=== PATIENT | female | born 1970 | race Caucasian/White ===

== ENCOUNTER 2018-03-02 06:19 | Emergency (ER) | payer SELFPAY ==
[2018-03-02] MEDS ORDERED: Oxymetazoline HCl 0.05% ( 15 ML ) ONE (06:26)
[2018-03-02] MEDS ORDERED: hydrALAZINE 20 MG/ML VIAL ONE (06:34)
[2018-03-02 06:57] LABS: #Lymphocytes 1.4 thou/uL (1.20-3.40); #Monocytes 0.2 thou/uL (0.11-0.59); #Neutrophils 5.3 thou/uL (1.40-6.50); %Basophils 0.5 % (0.0-1.0); %Eosinophils 0.3 % (0.0-10.0); %Lymphocytes 20.1 % (21.0-51.0); %Monocytes 2.6 % (0.0-10.0); %Neutrophils 76.6 % (42.0-75.0); Hemoglobin 14.9 g/dL (12.0-16.0); Mean Corpuscular HGB CONC 35.2 g/dL (32.0-36.0); Mean Corpuscular Hemoglobin 33.3 pg (27.0-31.0); Mean Corpuscular Volume 94.6 fL (78.0-98.0); Mean Platelet Volume 6.8 fL (7.4-10.4); Platelet Count 229 thou/uL (130-400); RBC Distribution Width 12.5 % (11.5-14.5); Red Blood Cell (RBC) Count 4.48 mill/uL (4.20-5.40); White Blood Cell (WBC) Count 6.9 thou/uL (4.8-10.8)
[2018-03-02 07:04] LABS: INR-International Normal Ratio 1.1; Prothrombin Time 13.8 SEC (12.0-14.7)
[2018-03-02 07:05] LABS: PTT 26.3 SEC (22.9-36.1)
[2018-03-02 07:16] LABS: ALT (SGPT) 74 U/L (8-55); AST (SGOT) 61 U/L (5-34); Albumin 3.9 g/dL (3.5-5.0); Alkaline Phosphatase 112 U/L (40-150); Anion Gap 13 mmol/L (10-20); BUN (Urea Nitrogen) 9 mg/dL (7.0-18.7); Bilirubin, Total 0.6 mg/dL (0.2-1.2); Calc. Creatinine Clearance 0 mL/min (70-130); Calcium 9.4 mg/dL (7.8-10.44); Carbon Dioxide 26 mmol/L (22-29); Chloride 100 mmol/L (98-107); Estimated GFR-MDRD 72; Globulin 3.1 g/dL (2.4-3.5); Glucose 152 mg/dL (70-105); Sodium 136 mmol/L (136-145)
[2018-03-02 07:20] LABS: Potassium 2.8 mmol/L (3.5-5.1)
[2018-03-02] MEDS ORDERED: Lidocaine Viscous Sol 2% 15 ml UD Cup ONE (08:27)
== END 2018-03-02 09:15 | disposition home or self-care (01) ==
LOC: ERS 06:19 → EDBD 06:19 → ERS 09:15
DX: R04.0 Epistaxis (principal); I10 Essential (primary) hypertension; F17.210 Nicotine dependence, cigarettes, uncomplicated; Z71.6 Tobacco abuse counseling
CPT/HCPCS: 36415; 80053; 85025; 85610; 85730; 96374; 99406; J0360

== ENCOUNTER 2019-12-06 19:33 | Observation (INO) | payer SELFPAY ==
[2019-12-06] MEDS ORDERED: Nitroglycerin 2% Ointment 1 INCH/1 GM Packet ONE (19:49)
[2019-12-06 20:07] LABS: #Basophils 0.1 thou/uL (0.0-0.2); #Lymphocytes 1.2 thou/uL (1.20-3.40); #Monocytes 0.3 thou/uL (0.11-0.59); #Neutrophils 3.2 thou/uL (1.40-6.50); %Basophils 1.6 % (0.0-1.0); %Eosinophils 0.5 % (0.0-10.0); %Monocytes 7.1 % (0.0-10.0); %Neutrophils 66.8 % (42.0-75.0); Hemoglobin 12.5 g/dL (12.0-16.0); Mean Corpuscular HGB CONC 35.1 g/dL (32.0-36.0); Mean Corpuscular Hemoglobin 34.3 pg (27.0-31.0); Mean Corpuscular Volume 97.7 fL (78.0-98.0); Mean Platelet Volume 8.9 fL (7.4-10.4); Platelet Count 81 thou/uL (130-400); RBC Distribution Width 17.1 % (11.5-14.5); Red Blood Cell (RBC) Count 3.64 mill/uL (4.20-5.40); White Blood Cell (WBC) Count 4.8 thou/uL (4.8-10.8)
[2019-12-06 20:17] LABS: Anisocytosis SLIGHT = 6-15 cells (100X) (0-5/hpf); MDiff Complete? YES; Platelet Morphology Comment Appears Decreased; Polychromasia SLIGHT = 2-3 cells (100X) (0-2/hpf)
--- NOTE | 2019-12-06 20:20 | RAD ---
CHEST ONE VIEW: 12/06/19 HISTORY: Pain. Left arm numbness and weakness. Hypertension. FINDINGS: Normal cardiac silhouette. The lungs and pleural spaces are clear. No pneumothorax or acute osseous abnormalities. IMPRESSION: No acute cardiopulmonary process. POS: PPP
[2019-12-06] MEDS ORDERED: hydrALAZINE 20 MG/ML VIAL ONE (20:25)
[2019-12-06 20:41] LABS: Albumin 3.1 g/dL (3.5-5.0)
[2019-12-06 20:42] LABS: Chloride 91 mmol/L (98-107); Sodium 132 mmol/L (136-145)
[2019-12-06 20:43] LABS: Calcium 8.1 mg/dL (7.8-10.44); Glucose 124 mg/dL (70-105)
[2019-12-06 20:44] LABS: Globulin 4.2 g/dL (2.4-3.5); Protein, Total 7.3 g/dL (6.0-8.3)
[2019-12-06 20:45] LABS: Anion Gap 23 mmol/L (10-20); Bilirubin, Total 2.2 mg/dL (0.2-1.2); Carbon Dioxide 21 mmol/L (22-29)
[2019-12-06 20:46] LABS: Alkaline Phosphatase 372 U/L (40-110)
[2019-12-06 20:47] LABS: BUN (Urea Nitrogen) Less than 4 mg/dL (7.0-18.7); Calc. Creatinine Clearance 0 mL/min (70-130); Estimated GFR-MDRD 76
[2019-12-06 20:48] LABS: AST (SGOT) 221 U/L (5-34)
[2019-12-06 20:49] LABS: ALT (SGPT) 68 U/L (8-55)
[2019-12-06 20:51] LABS: Potassium 2.5 mmol/L (3.5-5.1)
[2019-12-06] MEDS ORDERED: Potassium Chloride 20 MEQ TAB ONE (20:59)
--- NOTE | 2019-12-06 21:06 | PDOC.FPRHP ---
- Allergies/Adverse Reactions Allergies Allergy/AdvReac Type Severity Reaction Status Date / Time No Known Drug Allergies Allergy Verified 12/06/19 22:59 - Home Medications Medication Instructions Recorded Confirmed Type No Known 12/06/19 12/06/19 History - History PMHx: PSHx: FHx: Social: Tobacco abuse, etoh abuse - Vital signs BP: [160/135] HR: [109] RR: [18] Tmax: [98.6] Pox: [100]% on [RA] Wt: [70.31] FMR H&P: Results - Labs Result Diagrams: 12/06/19 22:33 12/06/19 22:34 Lab results: WBC 4.8 thou/uL (4.8-10.8) 12/06/19 19:55 Hgb 12.5 g/dL (12.0-16.0) 12/06/19 19:55 Hct 35.6 % (36.0-47.0) L 12/06/19 19:55 MCV 97.7 fL (78.0-98.0) 12/06/19 19:55 Plt Count 81 thou/uL (130-400) L 12/06/19 19:55 Neutrophils % 66.8 % (42.0-75.0) 12/06/19 19:55 Sodium 132 mmol/L (136-145) L 12/06/19 19:55 Potassium 2.5 mmol/L (3.5-5.1) L* 12/06/19 19:55 Chloride 91 mmol/L (98-107) L 12/06/19 19:55 Carbon Dioxide 21 mmol/L (22-29) L 12/06/19 19:55 BUN Less than 4 mg/dL (7.0-18.7) L 12/06/19 19:55 Creatinine 0.80 mg/dL (0.6-1.1) 12/06/19 19:55 Glucose 124 mg/dL (70-105) H 12/06/19 19:55 Calcium 8.1 mg/dL (7.8-10.44) 12/06/19 19:55 Total Bilirubin 2.2 mg/dL (0.2-1.2) H 12/06/19 19:55 AST 221 U/L (5-34) H 12/06/19 19:55 ALT 68 U/L (8-55) H 12/06/19 19:55 Alkaline Phosphatase 372 U/L (40-110) H 12/06/19 19:55 B-Natriuretic Peptide 18.6 pg/mL (0-100) 12/06/19 19:55 Serum Total Protein 7.3 g/dL (6.0-8.3) 12/06/19 19:55 Albumin 3.1 g/dL (3.5-5.0) L 12/06/19 19:55 FMR H&P: Upper Level - Plan Date/Time: 12/06/192101 PCP: CC-none HPI: This is a 49 yo F who came in for evaluation of chest pain. She states that this afternoon about 3pm she has numbness in her left arm as well as chest heaviness which lasted about 30 minutes. She denies sweats or shortness of breath. She has had palpitations for about 1week. She states the pain comes and goes randomly, it is not exacerbated by walking. She has smoked 1 ppd for about 35 years. She has never been hospitalized. She denies family history of heart disease. She states her father did have a history of blood clots in his leg when he had cancer, she has never had any blood clots. Additionally the patient states she has had decreased appetite for about a week. She vomited x1 today. She states all she ate today was a [employer] hamburger. No blood in the vomit. No diarrhea. Denies abdominal pain or pain after eating. She does drink every day. She and her partner drink a half-galloon of Vodka a week, at first she said she drank only at night. Then she admitted to getting blackout drunk a few times in the last year. Additionally, she admitted to sometimes drinking during the day. PMH: HTN, no hospitalizations PSH: none Meds: none Allergies: NKDA Soc Hx: 1ppd smoking 30+ years, alcohol as above, denies illicit drugs Fm Hx: mother had lung cancer, father of cancer unknown type, no heart disease REVIEW OF SYSTEMS: Gen: no fever, chills, or sweats Neuro: denies headache Eyes: no visual changes ENT: no hearing changes, no sore throat, no congestion Resp: denies cough, SOB Card: see hpi GI: see hpi MSK: no myalgia, no joint pain/stiffness Heme: no easy bruising/bleeding, no blood thinners Skin: no rash, no erythema Vitals: T: 98.6 R: 20 BP: 196/110 P:101 Sat: 98% on RA Wt: 70kg PHYSICAL EXAMINATION: General: NAD, alert and oriented x3 HEENT: PERRLA, EOMI, normal sclera, oropharynx without erythema or exudate Neck: Supple. Full ROM. Heart/Cardiovascular System: RRR, Cap refill < 3 seconds, no rub, no murmur Lungs/Respiratory System: CTA-B, no resp distress Abdomen/Gastro-Intestinal System: no abdominal tenderness, normal bowel sounds, murphys negative Extremities: Warm extremities. No cyanosis or edema Neuro: No gross deficits appreciated. CN 2-12 grossly intact Psychiatry: Awake, Alert and cooperative with exam Skin: No lesions, rashes, or ulcers Musculoskeletal: Full ROM A/P: # CP r/o, possible cardiac source - HEART 5, EKG mild ST depression lateral leads, no T-inv, trop neg - Wells: 1.5, no dimer for now - Stress test in AM, strong history, smoker - Trend trops # Hypokalemia - No T wave flattening - 40 K in ED, repeat CMP # Hypochloremic Metabolic Acidosis - Suspect 2/2 vomiting, dehdryation - Fluids, recheckCMP # HTN urgency - Hydralazine PRN - Will hold off on starting further meds until hypo K resolved - Amlodipine in AM # Alcohol Abuse - ASE protocol # Transaminitis, Thrombocytopenia - Dehydration vs 2/2 to above - CBC path review, PT/INR - RUQ US, Hep panel, HIV/RPR Fluids: LR 125ml/hr Code: full PPx: scd Dispo: pending stress test, resolution of metabolic acidosis Addendum - Attending - Attending Attestation Date/Time: 12/07/19 0016 I personally evaluated the patient and discussed the management with Dr. Calvillo. I agree with the History, Examination, Assessment and Plan documented above with any addition or exceptions noted below. 49 yo WF PMH HTN (untreated), tobacco abuse, and alcohol abuse (drinks approx 10 oz vodka nightly). CP that stated at 1500. Resolved with BP meds in ER. No prior cardiac eval. Exam repeated and agree with above. Labs reviewed. EKG reviewed. ST depressions lateral leads. CXR negative. Obs for ACS r/o and to evaluate epigastric pain. RUQ US ordered. trend trops. NM stress in AM. Will help arrange outpatient f/u (uninsured). Desires to stop using alcohol. Will discuss librium taper. Added renin and aldosteron due to hypokalemia and hx of hypokalemia on prior visit with elevated BP. Peripheral smear to eval pancytopenia. May have underlying cirrhosis 2/2 etoh use/abuse. obs, tele, <2 midnights.
[2019-12-06 21:07] LABS: INR-International Normal Ratio 1.1; Prothrombin Time 13.7 SEC (12.0-14.7)
[2019-12-06] MEDS ORDERED: Labetalol HCl 100 MG/20 ML VIAL ONE (21:07)
[2019-12-06] MEDS ORDERED: hydrALAZINE 20 MG/ML VIAL IM PRN (21:25)
[2019-12-06] MEDS ORDERED: Diazepam 5 MG TAB PO PRN (21:29)
[2019-12-06] MEDS ORDERED: Potassium Chloride 40 MEQ in Sodium Chloride 0.9% 250 ML 250 ML IVPB SCH (21:30)
[2019-12-06] MEDS ORDERED: Diazepam 5 MG TAB PO SCH (21:30)
[2019-12-06] MEDS ORDERED: Potassium Chloride 20 MEQ TAB PO SCH (22:00)
[2019-12-06] MEDS ORDERED: Thiamine HCl 200 MG/2 ML VIAL IM SCH (22:00)
--- NOTE | 2019-12-06 22:02 | ULT ---
RIGHT UPPER QUADRANT ULTRASOUND 12/06/19 PROVIDED CLINICAL HISTORY: Right upper quadrant pain. FINDINGS: The visualized portions of the pancreas appear normal. The liver is diffusely echogenic compatible wi th fatty infiltration. There is no evidence for intrahepatic mass or intrahepatic biliary ductal dila tation. The common duct is not dilated. The gallbladder is distended, without evidence for gallstones. Gallbladder wall thickening is demonst rated, measuring 4 to 5 mm. the right kidney demonstrates no hydronephrosis or mass. IMPRESSION: 1. Moderate gallbladder distention with gallbladder wall thickening. No evidence for gallstones. If there is concern for acalculous cholecystitis, consider HIDA scan. 2. Hepatic steatosis. POS: OVIDIO
[2019-12-06 22:27] LABS: Amphetamine Not Detected (NotDetected); Barbiturates Screen Not Detected (NotDetected); Benzodiazepine Screen Not Detected (NotDetected); Cocaine Metabolite Screen Not Detected (NotDetected); Medtox Control Line Valid? VALID (VALID); Medtox Reader # READER 4; Methadone Not Detected (NotDetected); Methamphetamine Not Detected (NotDetected); Opiate Screen Not Detected (NotDetected); Oxycodone Screen Not Detected (NotDetected); Phencyclidine (PCP) Not Detected (NotDetected); THC/Cannabinoid Screen Not Detected (NotDetected); Tricyclic Screen Not Detected (NotDetected)
[2019-12-06] MEDS ORDERED: Ondansetron PF 4 MG/2 ML Vial IVP PRN (22:31)
[2019-12-06] MEDS ORDERED: Acetaminophen 325 MG TAB PO PRN (22:31)
[2019-12-06 22:53] LABS: Band 5 % (5-11); Eosinophils 1 % (0-10); Hemoglobin 12.4 g/dL (12.0-16.0); Lymphocytes 31 % (21-51); MDiff Complete? YES; Mean Corpuscular HGB CONC 34.3 g/dL (32.0-36.0); Mean Corpuscular Hemoglobin 33.7 pg (27.0-31.0); Mean Corpuscular Volume 98.3 fL (78.0-98.0); Mean Platelet Volume 9.3 fL (7.4-10.4); Monocytes 5 % (0-10); Neutrophil 58 % (42-75); Platelet Count 82 thou/uL (130-400); Platelet Morphology Comment Appears Decreased; RBC Distribution Width 17.3 % (11.5-14.5); Red Blood Cell (RBC) Count 3.66 mill/uL (4.20-5.40); White Blood Cell (WBC) Count 5.5 thou/uL (4.8-10.8)
[2019-12-06 23:00] VITALS: BMI 27.1
[2019-12-06] MEDS ORDERED: Nicotine 14 MG PATCH TD SCH (23:00)
[2019-12-06 23:10] LABS: Troponin I Less than 0.010 ng/mL (< 0.028)
[2019-12-06 23:12] LABS: ALT (SGPT) 66 U/L (8-55); AST (SGOT) 214 U/L (5-34); Albumin 3.1 g/dL (3.5-5.0); Alkaline Phosphatase 372 U/L (40-110); Anion Gap 16 mmol/L (10-20); BUN (Urea Nitrogen) Less than 4 mg/dL (7.0-18.7); Bilirubin, Total 2.4 mg/dL (0.2-1.2); Calc. Creatinine Clearance 88 mL/min (70-130); Calcium 7.8 mg/dL (7.8-10.44); Carbon Dioxide 25 mmol/L (22-29); Chloride 97 mmol/L (98-107); Estimated GFR-MDRD 75; Globulin 3.9 g/dL (2.4-3.5); Glucose 115 mg/dL (70-105); Sodium 135 mmol/L (136-145)
[2019-12-06 23:27] LABS: HBCM Index 0.12 S/CO (0-0.79); HBSAg Index 0.16 S/CO (0-0.99); HIV (1/2) Antibody/Antigen Non-Reactive (NonReactive); HIV 1/2 INDEX 0.09 S/CO (<1.00); Hep A IgM AB Non-Reactive (NonReactive); Hep A IgM S/CO 0.27 S/CO (0-0.79); Hep B Surf Ag Non-Reactive S/CO (NonReactive); Hepatitis B Core IgM Abs Non-Reactive (NonReactive)
[2019-12-06] MEDS: Nitroglycerin 2% Ointment 1 INCH/1 GM Packet TOP SCH (23:29)
[2019-12-06 23:38] LABS: Syphilis Antibody Nonreactive (Nonreactive); Syphilis Antibody Index 0.05 S/CO (<1.00 Non-Reactive)
[2019-12-07] MEDS: Lactated Ringer's 1,000 ML IV SCH ×3 (00:07→14:51)
[2019-12-07 00:30] LABS: Hep C IgG Ab Non-Reactive (NonReactive); Hep C Index 0.75 S/CO (0-0.79)
[2019-12-07] MEDS ORDERED: Magnesium 2 GM/50 ML 2 GM in Premix Bag 1 BAG IVPB SCH (00:30)
[2019-12-07] MEDS: Potassium Chloride 20 MEQ in Premix Bag 1 BAG IVPB SCH ×2 (02:29→04:55)
[2019-12-07] MEDS ORDERED: Diazepam 5 MG TAB PO PRN (04:00)
[2019-12-07] MEDS: Nitroglycerin 2% Ointment 1 INCH/1 GM Packet TOP SCH (05:06)
[2019-12-07 05:13] LABS: ALT (SGPT) 54 U/L (8-55); AST (SGOT) 177 U/L (5-34); Albumin 2.7 g/dL (3.5-5.0); Alkaline Phosphatase 305 U/L (40-110); Anion Gap 12 mmol/L (10-20); BUN (Urea Nitrogen) Less than 4 mg/dL (7.0-18.7); Bilirubin, Total 2.2 mg/dL (0.2-1.2); Calc. Creatinine Clearance 94 mL/min (70-130); Calcium 7.7 mg/dL (7.8-10.44); Carbon Dioxide 26 mmol/L (22-29); Chloride 102 mmol/L (98-107); Estimated GFR-MDRD 81; Globulin 3.4 g/dL (2.4-3.5); Glucose 103 mg/dL (70-105); Magnesium 1.8 mg/dL (1.6-2.6); Potassium 3.4 mmol/L (3.5-5.1); Protein, Total 6.1 g/dL (6.0-8.3); Sodium 137 mmol/L (136-145)
[2019-12-07 05:16] LABS: Troponin I 0.022 ng/mL (< 0.028)
--- NOTE | 2019-12-07 05:43 | PDOC.FM ---
- Subjective Subjective: Patient reports she is doing well this morning. Denies chest pain overnight. Reports that she usually drinks 5oz vodka/day, but at the beginning of october her dog and she started drinking 10oz vodka/day. She is interested in quitting drinking alcohol, as her chest pain scared her. Discussed getting her in touch with primary care, she reports it may be difficult for her to get transportation to [place] but there is a [facility] in [place] that she could go to. She reports that she has had decreased appetite for the last month but severely for the past week, and she has vomited approximately 1x/day for the last week. - Objective Vital Signs & Weight: Vital Signs (12 hours) Temp Pulse Resp BP BP Pulse Ox 12/07/19 02:55 97.9 F 87 18 136/68 94 L 12/06/19 22:31 99.2 F 97 16 139/85 97 12/06/19 22:30 99.2 F 97 16 139/95 H 97 12/06/19 19:44 99.2 F 97 16 139/85 97 Weight Weight 67.358 kg I&O: 12/05/19 12/06/19 12/07/19 06:59 06:59 06:59 Intake Total 330 Balance 330 Result Diagrams: 12/06/19 22:33 12/07/19 04:11 EKG Reviewed by me: Yes (NSR, 80s-90s) Phys Exam - Physical Examination Constitutional: NAD HEENT: moist MMs, sclera anicteric Neck: supple, full ROM Respiratory: no wheezing, clear to auscultation bilateral Cardiovascular: RRR, no significant murmur Gastrointestinal: soft, positive bowel sounds ttp mid-epigastric Musculoskeletal: no edema, pulses present Neurological: normal sensation, moves all 4 limbs Lymphatic: no nodes Psychiatric: normal affect, A&O x 3 Skin: no rash, normal turgor Dx/Plan (1) Atypical chest pain Code(s): R07.89 - OTHER CHEST PAIN Status: Acute (2) Alcohol abuse Code(s): F10.10 - ALCOHOL ABUSE, UNCOMPLICATED Status: Chronic (3) Transaminitis Code(s): R74.0 - NONSPEC ELEV OF LEVELS OF TRANSAMNS & LACTIC ACID DEHYDRGNSE Status: Acute (4) Hypokalemia Code(s): E87.6 - HYPOKALEMIA Status: Acute (5) Hyperbilirubinemia Code(s): E80.6 - OTHER DISORDERS OF BILIRUBIN METABOLISM Status: Acute (6) Hyperchloremic metabolic acidosis Code(s): E87.2 - ACIDOSIS Status: Acute (7) Thrombocytopenia Code(s): D69.6 - THROMBOCYTOPENIA, UNSPECIFIED Status: Acute (8) Tobacco abuse Code(s): Z72.0 - TOBACCO USE Status: Chronic - Plan Plan: Patient is a 49F with PMHx of tobacco abuse and alcohol abuse that is admitted for: # Atypical chest pain -HEART 5, EKG mild ST depression lateral leads, no T-inv -trop <0.01<0.022<0.021 -Wells: 1.5, no dimer for now -Stress test today, strong history, smoker # Hypokalemia -No T wave flattening -repleted, will continue to monitor -renin:aldosterone pending # Hypochloremic Metabolic Acidosis, resolved -Suspect 2/2 vomiting, dehdryation # HTN urgency, resolved -Hydralazine PRN -patient's BP have improved overnight -Start Amlodipine today # Alcohol Abuse -ASE protocol -Can consider librium taper outpatient # Transaminitis, Thrombocytopenia -Hx of alcohol abuse -Abdominal US: moderate gallbladder distention with gallbladder wall thickening , no gallstones; hepatic steatosis -Can consider HIDA scan outpatient -Dehydration vs 2/2 to above -PT/INR wnl -Hep panel, HIV/RPR neg -Smear pending Fluids: LR 125ml/hr Code: full PPx: scd Dispo: tele obs for cardiac monitoring, trending trops; plan for stress test today
[2019-12-07 08:23] LABS: Troponin I 0.021 ng/mL (< 0.028)
[2019-12-07] MEDS ORDERED: Magnesium Oxide 400 MG TAB PO SCH (09:00)
[2019-12-07] MEDS ORDERED: Multivitamin W/ Minerals 1 TAB PO SCH (09:00)
[2019-12-07] MEDS ORDERED: Magnesium Chloride 64 MG TAB PO SCH (09:00)
[2019-12-07] MEDS ORDERED: Famotidine 20 MG TAB PO SCH (09:00)
[2019-12-07] MEDS ORDERED: Amlodipine 5 MG TAB PO SCH (09:00)
[2019-12-07] MEDS ORDERED: Aspirin 325 mg Enteric Coated Tablet PO SCH (09:00)
[2019-12-07] MEDS ORDERED: Folic Acid 1 MG TAB PO SCH (09:00)
[2019-12-07] MEDS ORDERED: Thiamine 100 MG TAB PO SCH (09:00)
[2019-12-07 11:21] VITALS: TEMP 98.2
--- NOTE | 2019-12-07 11:23 | NM ---
EXAM: NM Cardiac Stress W EF WF PROVIDED CLINICAL HISTORY: Chest pain COMPARISON: None FINDINGS: There is normal uptake and distribution of radiotracer seen throughout the left ventricular myocardiu m on both the stress and resting acquisitions. No reversible defect is identified. Quantitative analysis also shows no significant reversible defect. Gated images show normal ventricular wall motio n and wall thickening. Calculated left ventricular ejection fraction is 75%. IMPRESSION: 1. Normal myocardial perfusion study without evidence of a reversible defect seen to suggest ischemia . 2. Normal LVEF of 75%.
[2019-12-07] MEDS ORDERED: Regadenoson 0.4 MG/5 ML SYRINGE ONE (12:16)
--- NOTE | 2019-12-07 14:53 | EKG ---
Test Reason : Blood Pressure : / mmHG Vent. Rate : 098 BPM Atrial Rate : 098 BPM P-R Int : 140 ms QRS Dur : 092 ms QT Int : 350 ms P-R-T Axes : 035 030 -03 degrees QTc Int : 446 ms Sinus rhythm with occasional Premature ventricular complexes Abnormal ECG Confirmed by YAMINI COOK, MALIK Horn ([id number]), commissioning editor ANDREW LOPES ([id number]) on 12/07/2019 2:53:03 PM Referred By: Confirmed By:MALIK KC MD
[2019-12-07 15:13] VITALS: BP 151/94
--- NOTE | 2019-12-08 11:00 | DIS ---
DATE OF ADMISSION: 12/06/2019 DATE OF DISCHARGE: 12/07/2019 ADMITTING RESIDENT: Nicole Cervantes MD ADMITTING ATTENDING: Maik Colvin MD DISCHARGE RESIDENT: Марина Arrieta MD DISCHARGE ATTENDING: Barrera Cancino MD CONSULTS: Walking program. PROCEDURES: Stress test, nuclear medicine: Normal myocardial perfusion study without evidence of a reversible defect seen to suggest ischemia. Normal LVEF of 75%. IMAGING: Chest x-ray: No acute cardiopulmonary process. Abdominal ultrasound: Moderate gallbladder distention with gallbladder wall thickening. No evidence for gallstones. If there is concern for acalculous cholecystitis, consider HIDA scan. Hepatic steatosis. PRIMARY DIAGNOSES: Atypical chest pain, hypokalemia, hypochloremic metabolic acidosis, hypertensive urgency, transaminitis, thrombocytopenia. SECONDARY DIAGNOSES: Alcohol abuse, HTN DISCHARGE MEDICATIONS: 1. Amlodipine 5 mg p.o. daily. 2. 50 mg Librium x11 capsules, with Librium taper. 3. One multivitamin with minerals p.o. daily. DISCONTINUED MEDICATIONS: 1. Tylenol p.r.n. 2. Aspirin 325 mg b.i.d. 3. Ativan. 4. ASE protocol. 5. Famotidine b.i.d. 6. Magnesium oxide. 7. Magnesium sulfate. 8. Nicotine patch. 9. Nitroglycerin sublingual. 10. . 11. Potassium chloride. 12. . 13. . 14. Hydralazine p.r.n. HISTORY OF PRESENT ILLNESS/HOSPITAL COURSE: The patient is a 49-year-old female who presented to the ER for an evaluation of chest pain which she reported began around 3 p.m. the day of admission and lasted about 30 minutes. She described the pain as chest heaviness and accompanied by some numbness in her left arm. She also reported some palpitations over the last week and she has been having these kinds of feeling for the last few months. She does report that at the beginning of October her dog and since that time she has increased her vodka consumption from 5 ounces every day to 10 ounces every day and over the last week, her appetite has greatly decreased likely due to depression. She has also had daily vomiting over the last week. On admission, she was found to have HEART score of 5 though her troponins were trended and were all negative. She also had a stress test, see above. It should be noted that she also noted to have hypokalemia which was repleted and hypochloremic metabolic acidosis likely due to the vomiting and dehydration and this resolved before discharge. She did have hypertensive urgency in the ER, however, throughout the rest of the hospitalization, her vitals were stable. Her highest blood pressure was 158/81. She was started on amlodipine for hypertension. She was also noticed to have transaminitis and thrombocytopenia on admission and she had reported some abdominal pain, so a right upper quadrant ultrasound was obtained, see above. A hepatitis panel of hepatitis A, B and C as well as HIV and syphilis were obtained and were all negative. The patient does have a history of alcohol abuse and she states that she is very determined to stop using alcohol at this time, so she was discharged with a Librium taper. There was a lengthy discussion about the directions for the Librium taper as well as the risks and benefits of utilizing it for alcohol abuse and to prevent alcohol withdrawal. There was also a great discussion about the risks of using alcohol at the same time as taking Librium, and the patient stated that she understood the risks of respiratory depression and possible . The patient was evaluated on the day of discharge and found to be in stable condition. She states that she would likely go to follow up with a primary care provider at the [facility] in [place] where she lives as transportation to the [facility] area is difficult for her at the current time. DISPOSITION: Stable. DISCHARGE INSTRUCTIONS: 1. Location: Home. 2. Diet: Heart healthy. 3. Activity: As tolerated. 4. Followup: Follow up with a primary care provider at [place] within 7 days.. Job ID: [id number] [id number]
[2019-12-12 02:37] LABS: Renin Activity 0.623 ng/mL/hr (0.167-5.380)
== END 2019-12-07 16:50 | disposition home or self-care (01) ==
LOC: ERS 19:33 → 2NO 20:44
PROVIDERS: ADMIT Family Medicine; ATTEND Family Medicine
DX: R07.89 Other chest pain (principal); I16.0 Hypertensive urgency; E87.6 Hypokalemia; E87.2 Acidosis; F10.10 Alcohol abuse, uncomplicated; D69.6 Thrombocytopenia, unspecified; K76.0 Fatty (change of) liver, not elsewhere classified; E80.6 Other disorders of bilirubin metabolism
CPT/HCPCS: 36415; 71045; 76705; 78452; 80053; 80074; 80306; 82088; 83690; 83735; 83880; 84244; 84484; 85025; 85060; 85610; 86780; 87389; 93005; 93017; 94760; 96361; 96365; 96372; 96375; 96376; A9500; G0378; J0360; J2785; J3411; J3475; J3480; J3490; J7050